=== PATIENT | female | born 1965 | race African-American/Black ===

== ENCOUNTER 2016-10-17 09:30 | Inpatient (IN) | payer MEDICAID ==
[~2016-10-17] VITALS: Ht 165.1 cm; Wt 99.8 kg
[~2016-10-17 09:30] MED LIST: AMLODIPINE BESY10 MG ORAL; ASPIR 8181 MG ORAL; HYDROCHLOROTHIA25 MG ORAL; METOPROLOL SUCC25 MG ORAL; METOPROLOL SUCC50 MG ORAL; NORVASC10 MG ORAL; SIMVASTATIN10 MG ORAL
--- NOTE | 2016-10-17 09:40 | Emergency Room Report ---
History of Present Illness General Chief Complaint: Chest Pain Source: Patient Present Illness HPI Patient is a 51-year-old female who presented after increased chest pain. Patient says she had acute onset of symptoms for one day. Patient reports having prior history hypertension. The patient states that she had also had prior history of CHF. Patient states she been out of her medications for approximately 3 weeks. As she previously had been taking amlodipine. She also reports taking other medication but does not of the names. Patient stated that she had not had any prior myocardial infarctions. Allergies: Coded Allergies: PENICILLIN (Verified Allergy, Unknown, 02/17/15) Patient History Past Medical History: see triage record Reviewed Nursing Documentation: PMH: Agreed, PSxH: Agreed Nursing Documentation-PMH Hx Cardiac Problems: Yes - CHF Hx Hypertension: Yes Hx Cancer: No Hx Gastrointestinal Problems: No Hx Neurological Problems: No Review of Systems All Other Systems: negative except mentioned in HPI Physical Exam Vital Signs Date Time Temp Pulse Resp B/P Pulse Ox O2 Delivery O2 Flow Rate FiO2 10/17/16 09:33 98.2 102 20 205/138 100 Room Air Sp02 EP Interpretation: reviewed, normal General Appearance: normal inspection, well appearing, no apparent distress, alert, GCS 15 Head: atraumatic ENT: normal ENT inspection, hearing grossly normal, normal voice Neck: normal inspection, full range of motion, supple, no bony tend Respiratory: normal inspection, lungs clear, normal breath sounds, no respiratory distress, no retraction, no wheezing Cardiovascular #1: regular rate, rhythm, no edema Gastrointestinal: normal inspection, normal bowel sounds, non tender, soft, no guarding, no hernia Genitourinary: no CVA tenderness Musculoskeletal: normal inspection, back normal, normal range of motion Neurologic: normal inspection, alert, oriented x3, responsive, geochemical manager III-XII nml as tested, speech normal Psychiatric: normal inspection, judgement/insight normal, mood/affect normal Skin: normal inspection, normal color, no rash Medical Decision Making Diagnostic Impression: Primary Impression: Acute congestive heart failure Additional Impression: Accelerated hypertension ER Course Patient presented for chest pain. Differential diagnosis included but was not limited to acute coronary syndrome, pulmonary embolism, pneumonia, aortic dissection, shingles, pneumothorax, aortic dissection, esophageal rupture, pericarditis. Because of complexity of patient's case laboratory testing and imaging studies were ordered.Laboratory testing was notable for elevated BNP.Initial troponin was negative. Patient was given IV medications for blood pressure as well as nitroglycerin. The patient was noted to have initially markedly hypertensive blood pressure. Chest Xray interpreted by me 1 view showed no evident infiltrate, normal mediastinum, and normal cardiac size. Dr. Ace Logan was contacted for inpatient management. The patient noted have continued elevated blood pressure. The patient likely need further inpatient medication management as well as diuresis. Labs Test 10/17/16 09:35 10/17/16 10:15 10/18/16 04:35 White Blood Count 6.9 K/UL (4.8-10.8) Red Blood Count 5.42 M/UL (4.20-5.40) Hemoglobin 16.6 G/DL (12.0-16.0) Hematocrit 51.9 % (37.0-47.0) Mean Corpuscular Volume 96 FL (80-99) Mean Corpuscular Hemoglobin 30.6 PG (27.0-31.0) Mean Corpuscular Hemoglobin Concent 32.0 G/DL (32.0-36.0) Red Cell Distribution Width 13.9 % (11.6-14.8) Platelet Count 278 K/UL (150-450) Mean Platelet Volume 6.4 FL (6.5-10.1) Neutrophils (%) (Auto) 46.7 % (45.0-75.0) Lymphocytes (%) (Auto) 42.0 % (20.0-45.0) Monocytes (%) (Auto) 8.9 % (1.0-10.0) Eosinophils (%) (Auto) 1.3 % (0.0-3.0) Basophils (%) (Auto) 1.1 % (0.0-2.0) Prothrombin Time 9.9 SEC (9.30-11.50) Prothromb Time International Ratio 0.9 (0.9-1.1) Activated Partial Thromboplast Time 27 SEC (23-33) Sodium Level 139 mEQ/L (135-145) Potassium Level 3.7 mEQ/L (3.4-4.9) Chloride Level 102 mEQ/L (98-107) Carbon Dioxide Level 26 mEQ/L (20-30) Anion Gap 11 (5-15) Blood Urea Nitrogen 11 mg/dL (7-23) Creatinine 1.2 mg/dL (0.5-0.9) Estimat Glomerular Filtration Rate 57.3 mL/min (>60) Glucose Level 105 mg/dL (74-106) Calcium Level 9.3 mg/dL (8.6-10.2) Total Bilirubin 0.6 mg/dL (0.0-1.2) Aspartate Amino Transf (AST/SGOT) 16 U/L (5-40) Alanine Aminotransferase (ALT/SGPT) 14 U/L (3-33) Alkaline Phosphatase 57 U/L (35-104) Total Creatine Kinase 159 U/L (26-140) Creatine Kinase MB 2.2 ng/mL (< 3.8) Creatine Kinase MB Relative Index 1.3 Pro-B-Type Natriuretic Peptide 364 pg/mL (0-125) Total Protein 7.9 g/dL (6.6-8.7) Albumin 4.4 g/dL (3.5-5.2) Globulin 3.5 g/dL Albumin/Globulin Ratio 1.2 (1.0-2.7) Urine Color Pale yellow Urine Appearance Clear Urine pH 6 (4.5-8.0) Urine Specific [place] 1.010 (1.005-1.035) Urine Protein 3+ (NEGATIVE) Urine Glucose (UA) Negative (NEGATIVE) Urine Ketones Negative (NEGATIVE) Urine Occult Blood Negative (NEGATIVE) Urine Nitrite Negative (NEGATIVE) Urine Bilirubin Negative (NEGATIVE) Urine Urobilinogen Normal MG/DL (0.0-1.0) Urine Leukocyte Esterase Negative (NEGATIVE) Urine RBC 0-2 /HPF (0 - 2) Urine WBC 0-2 /HPF (0 - 2) Urine Squamous Epithelial Cells Moderate /LPF (NONE/OCC) Urine Bacteria Few /HPF (NONE) Urine Opiates Screen Negative (NEGATIVE) Urine Barbiturates Screen Negative (NEGATIVE) Phencyclidine (PCP) Screen Negative (NEGATIVE) Urine Amphetamines Screen Negative (NEGATIVE) Urine Benzodiazepines Screen Negative (NEGATIVE) Urine Cocaine Screen Negative (NEGATIVE) Urine Marijuana (THC) Screen Negative (NEGATIVE) Troponin I < 0.30 ng/mL (<=0.30) EKG Diagnostic Results Rate: normal Rhythm: NSR ST Segments: no acute changes Rhythm Strip Diag. Results EP Interpretation: yes Rhythm: NSR, no PVC's, no ectopy Last Vital Signs Date Time Temp Pulse Resp B/P Pulse Ox O2 Delivery O2 Flow Rate FiO2 10/17/16 09:33 98.2 102 20 205/138 100 Room Air Status: improved Disposition: HOME, SELF-CARE Condition: Stable Jeffry Maria Oct 17, 2016 09:40
[2016-10-17] MEDS ORDERED: Nitroglycerin Subl 0.4mg tab (Bottle Of 25) SL PRN (09:45)
[2016-10-17] MEDS ORDERED: Metoprolol 5mg/5ml Inj IVP ONE (09:45)
[2016-10-17 09:55] LABS: BASOPHILS % (AUTO) 1.1 % (0.0-2.0); EOSINOPHILS % (AUTO) 1.3 % (0.0-3.0); MEAN CORPUSCULAR HEMOGLOBIN 30.6 PG (27.0-31.0); MEAN CORPUSCULAR VOLUME 96 FL (80-99); MEAN PLATELET VOLUME 6.4 FL (6.5-10.1); MONOCYTES % (AUTO) 8.9 % (1.0-10.0); NEUTROPHILS % (AUTO) 46.7 % (45.0-75.0); PLATELET COUNT 278 K/UL (150-450); RED BLOOD COUNT 5.42 M/UL (4.20-5.40); RED CELL DISTRIBUTION WIDTH 13.9 % (11.6-14.8); WHITE BLOOD COUNT 6.9 K/UL (4.8-10.8)
[2016-10-17 10:00] VITALS: BP 168/106
[2016-10-17 10:02] LABS: INR 0.9 (0.9-1.1); PROTHROMBIN TIME 9.9 SEC (9.30-11.50)
[2016-10-17 10:07] LABS: ALBUMIN/GLOBULIN RATIO 1.2 (1.0-2.7); CALCIUM 9.3 mg/dL (8.6-10.2); CREATININE 1.2 mg/dL (0.5-0.9); GLOMERULAR FILTRATION RATE 57.3 mL/min (>60); POTASSIUM 3.7 mEQ/L (3.4-4.9); TOTAL PROTEIN 7.9 g/dL (6.6-8.7); TROPONIN I < 0.30 ng/mL (<=0.30)
[2016-10-17 10:18] LABS: CKMB 2.2 ng/mL (< 3.8)
[2016-10-17 10:31] LABS: APPEARANCE,URINE CLEAR; KETONES,URINE NEGATIVE (NEGATIVE); LEUKOCYTE ESTERASE ,URINE NEGATIVE (NEGATIVE); NITRITE,URINE NEGATIVE (NEGATIVE); PH,URINE 6 (4.5-8.0); PROTEIN,URINE 3+ (NEGATIVE); UROBILINOGEN,URINE NORMAL MG/DL (0.0-1.0)
[2016-10-17 10:40] LABS: BACTERIA,URINE FEW /HPF; RBC,URINE 0-2 /HPF (0 - 2); SQUAMOUS EPITHELIAL CELL,UR MODERATE /LPF (NONE/OCC); WBC,URINE 0-2 /HPF (0 - 2)
[2016-10-17 11:16] VITALS: BP 160/80
--- NOTE | 2016-10-17 12:41 | History & Physical ---
History and Physical History & Physicial Present Illness HPI 51-year-old female who presented with hypertension out of control. Patient says she had acute onset of symptoms for one day. Patient reports having hypertension. Patient states she been out of her medications for approximately 3 weeks. Patient denies CAD disease Allergies: PENICILLIN (Verified Allergy, Unknown, 02/17/15) Past Medical History: CHF, HTN Reviewed of systems: otherwise negative family history; [place] MED/Allergy: reviewed Physical Exam WDWN NAD clear breath sounds bilaterally without rhonchi or wheeze [id number] without MRG NABS nontender no HSM no CCE nonfocal Laboratory Tests Test 10/17/16 09:35 10/17/16 10:15 White Blood Count 6.9 K/UL (4.8-10.8) Red Blood Count 5.42 M/UL (4.20-5.40) H Hemoglobin 16.6 G/DL (12.0-16.0) H Hematocrit 51.9 % (37.0-47.0) H Mean Corpuscular Volume 96 FL (80-99) Mean Corpuscular Hemoglobin 30.6 PG (27.0-31.0) Mean Corpuscular Hemoglobin Concent 32.0 G/DL (32.0-36.0) Red Cell Distribution Width 13.9 % (11.6-14.8) Platelet Count 278 K/UL (150-450) Mean Platelet Volume 6.4 FL (6.5-10.1) L Neutrophils (%) (Auto) 46.7 % (45.0-75.0) Lymphocytes (%) (Auto) 42.0 % (20.0-45.0) Monocytes (%) (Auto) 8.9 % (1.0-10.0) Eosinophils (%) (Auto) 1.3 % (0.0-3.0) Basophils (%) (Auto) 1.1 % (0.0-2.0) Prothrombin Time 9.9 SEC (9.30-11.50) Prothromb Time International Ratio 0.9 (0.9-1.1) Activated Partial Thromboplast Time 27 SEC (23-33) Sodium Level 139 mEQ/L (135-145) Potassium Level 3.7 mEQ/L (3.4-4.9) Chloride Level 102 mEQ/L (98-107) Carbon Dioxide Level 26 mEQ/L (20-30) Anion Gap 11 (5-15) Blood Urea Nitrogen 11 mg/dL (7-23) Creatinine 1.2 mg/dL (0.5-0.9) H Estimat Glomerular Filtration Rate 57.3 mL/min (>60) Glucose Level 105 mg/dL (74-106) Calcium Level 9.3 mg/dL (8.6-10.2) Total Bilirubin 0.6 mg/dL (0.0-1.2) Aspartate Amino Transf (AST/SGOT) 16 U/L (5-40) Alanine Aminotransferase (ALT/SGPT) 14 U/L (3-33) Alkaline Phosphatase 57 U/L (35-104) Total Creatine Kinase 159 U/L (26-140) H Creatine Kinase MB 2.2 ng/mL (< 3.8) Creatine Kinase MB Relative Index 1.3 Troponin I < 0.30 ng/mL (<=0.30) Pro-B-Type Natriuretic Peptide 364 pg/mL (0-125) H Total Protein 7.9 g/dL (6.6-8.7) Albumin 4.4 g/dL (3.5-5.2) Globulin 3.5 g/dL Albumin/Globulin Ratio 1.2 (1.0-2.7) Urine Color Pale yellow Urine Appearance Clear Urine pH 6 (4.5-8.0) Urine Specific [place] 1.010 (1.005-1.035) Urine Protein 3+ (NEGATIVE) H Urine Glucose (UA) Negative (NEGATIVE) Urine Ketones Negative (NEGATIVE) Urine Occult Blood Negative (NEGATIVE) Urine Nitrite Negative (NEGATIVE) Urine Bilirubin Negative (NEGATIVE) Urine Urobilinogen Normal MG/DL (0.0-1.0) Urine Leukocyte Esterase Negative (NEGATIVE) Urine RBC 0-2 /HPF (0 - 2) Urine WBC 0-2 /HPF (0 - 2) Urine Squamous Epithelial Cells Moderate /LPF (NONE/OCC) H Urine Bacteria Few /HPF (NONE) Urine Opiates Screen Negative (NEGATIVE) Urine Barbiturates Screen Negative (NEGATIVE) Phencyclidine (PCP) Screen Negative (NEGATIVE) Urine Amphetamines Screen Negative (NEGATIVE) Urine Benzodiazepines Screen Negative (NEGATIVE) Urine Cocaine Screen Negative (NEGATIVE) Urine Marijuana (THC) Screen Negative (NEGATIVE) IMPRESSION hypertension out of control noncompliance mild elevation in HH PLAN resume meds cardiac diet ecg, echo follow up troponin dc if stable in am JOSE WEBER Oct 17, 2016 12:41
[2016-10-17] MEDS: Metoprolol 25mg tab ORAL SCH ×2 (13:12→20:31)
[2016-10-17 13:14] VITALS: BP 177/115
[2016-10-17 15:52] VITALS: BP 156/101
[2016-10-17 20:00] VITALS: BP 153/90
[2016-10-17] MEDS: Heparin 5000 units/ml inj SUBQ SCH (20:33)
[2016-10-18] VITALS: BP 149/87
[2016-10-18 04:00] VITALS: BP 145/80
[2016-10-18 05:44] LABS: TROPONIN I < 0.30 ng/mL (<=0.30)
[2016-10-18 08:00] VITALS: BP 170/114
[2016-10-18] MEDS: Aspirin Baby 81mg ORAL SCH (08:27)
[2016-10-18] MEDS: Metoprolol 25mg tab ORAL SCH ×2 (08:27→18:10)
[2016-10-18] MEDS: Heparin 5000 units/ml inj SUBQ SCH ×2 (08:28→20:29)
--- NOTE | 2016-10-18 09:42 | General Progress Note ---
Assessment/Plan Assessment/Plan IMPRESSION hypertension out of control noncompliance mild elevation in HH PLAN continue meds cardiac diet ecg, echo to follow follow up troponin dc home with home health if stable Subjective Allergies: Coded Allergies: PENICILLIN (Verified Allergy, Unknown, 02/17/15) Subjective care noted tele reviewed stable overnight Objective Last 24 Hour Vital Signs Date Time Temp Pulse Resp B/P Pulse Ox O2 Delivery O2 Flow Rate FiO2 10/18/16 08:27 67 170/114 10/18/16 08:27 67 170/114 10/18/16 08:00 97.5 67 20 170/114 96 Room Air 10/18/16 04:00 98.2 72 19 145/80 100 Room Air 10/18/16 04:00 67 10/18/16 00:00 58 10/18/16 00:00 98.2 70 20 149/87 100 Room Air 10/17/16 23:07 98.1 10/17/16 20:31 68 153/90 10/17/16 20:00 98.1 68 19 153/90 95 Room Air 10/17/16 20:00 67 10/17/16 18:00 86 10/17/16 16:53 59 185/105 10/17/16 15:52 98.0 18 156/101 99 10/17/16 13:16 98.0 62 14 177/115 96 Nasal Cannula 2.0 10/17/16 13:14 98.0 62 14 177/115 96 Nasal Cannula 2.0 10/17/16 13:12 62 177/115 10/17/16 11:16 72 16 160/80 98 Room Air 10/17/16 10:00 98.1 93 29 168/106 95 Room Air 10/17/16 09:44 84 192/136 10/17/16 09:43 192/136 Intake and Output 10/17/16 10/18/16 19:00 07:00 Intake Total 300 ml 400 ml Balance 300 ml 400 ml Intake Oral 300 ml IV Total 400 ml Laboratory Tests 10/17/16 10:15: Urine Color Pale yellow, Urine Appearance Clear, Urine pH 6, Urine Specific [place] 1.010, Urine Protein 3+H, Urine Glucose (UA) Negative, Urine Ketones Negative, Urine Occult Blood Negative, Urine Nitrite Negative, Urine Bilirubin Negative, Urine Urobilinogen Normal, Urine Leukocyte Esterase Negative, Urine RBC 0-2, Urine WBC 0-2, Urine Squamous Epithelial Cells ModerateH, Urine Bacteria Few, Urine Opiates Screen Negative, Urine Barbiturates Screen Negative , Phencyclidine (PCP) Screen Negative, Urine Amphetamines Screen Negative, Urine Benzodiazepines Screen Negative, Urine Cocaine Screen Negative, Urine Marijuana (THC) Screen Negative 10/18/16 04:35: Troponin I < 0.30 Height (Feet): 5 Height (Inches): 5.00 Weight (Pounds): 220 Objective WDWN NAD clear breath sounds bilaterally without rhonchi or wheeze [id number] without MR; noted S4 NABS nontender no HSM no CCE nonfocal JOSE WEBER Oct 18, 2016 09:42
[2016-10-18 12:00] VITALS: BP 144/99
--- NOTE | 2016-10-18 14:49 | Physician Query ---
PLEASE COMPLETE DOCUMENT BEFORE SIGNING Dear Dr. WEBER Date: OCTOBER 18, 2016 [facility] Name: VITOR MINA/ROSALINA [facility] Phone #[phone] Exercise your independent professional judgment when responding to the query. Question asked do not imply a particular answer is desired/expected Clinical Documentation States: "HYPERTENSION OUT OF CONTROL" documented in Clinical Findings Show: Systolic BP = 205, 192, 192, 168 Diastolic BP = 138, 136, 136, 106 Treatment: Antihypertensives: NITROGLYCERINE SL, METOPROLOL 50 MG BID, AMLODIPINE 10 MG OD. ASA 81 mg OD, HEPARIN 5,000 SQ, NaCl IVF Please Clarify the specific type of hypertension: [x] HYPERTENSIVE URGENCY [] HYPERTENSIVE EMERGENCY [] BENIGN/ESSENTIAL HYPERTENSION [] Other: Please clarify if associated with: []Heart Disease []Kidney Disease Condition Present on Admission: [x] Yes [] No []Clinically Undeterminable Please also document in your Progress Notes and/or Discharge Summary and indicate if the condition was present on admission. JOSE WEBER M.D. DATE & TIME MTDD
[2016-10-18 16:00] VITALS: BP 146/94
[2016-10-18 20:00] VITALS: BP 162/94
[2016-10-19] VITALS: BP 170/101
[2016-10-19 04:00] VITALS: BP 171/112
[2016-10-19 07:56] LABS: TROPONIN I < 0.30 ng/mL (<=0.30)
[2016-10-19 08:00] VITALS: BP 147/106
[2016-10-19] MEDS: Aspirin Baby 81mg ORAL SCH (09:19)
[2016-10-19] MEDS: Metoprolol 25mg tab ORAL SCH (09:19)
[2016-10-19] MEDS: Heparin 5000 units/ml inj SUBQ SCH (09:21)
[2016-10-19 10:53] VITALS: BP 149/95
--- NOTE | 2016-10-19 11:04 | General Progress Note ---
Assessment/Plan Assessment/Plan IMPRESSION hypertension out of control noncompliance mild elevation in HH hypertensive urgency PLAN continue meds rx given follow up with PMD dc home today Subjective Allergies: Coded Allergies: PENICILLIN (Verified Allergy, Unknown, 02/17/15) Subjective care noted tele reviewed stable overnight BP slightly elevated Objective Last 24 Hour Vital Signs Date Time Temp Pulse Resp B/P Pulse Ox O2 Delivery O2 Flow Rate FiO2 10/19/16 10:53 97.0 52 18 149/95 96 10/19/16 09:19 57 157/92 10/19/16 09:19 57 157/92 10/19/16 08:00 96.9 57 17 147/106 95 Room Air 10/19/16 08:00 60 10/19/16 04:00 97.6 61 18 171/112 96 Room Air 10/19/16 04:00 54 10/19/16 00:00 45 10/19/16 00:00 97.8 58 18 170/101 95 Room Air 10/18/16 20:00 97.7 57 20 162/94 95 Room Air 10/18/16 20:00 59 10/18/16 19:03 59 10/18/16 18:10 56 146/94 10/18/16 16:00 97.2 56 21 146/94 97 Room Air 10/18/16 12:08 55 10/18/16 12:00 97.0 60 21 144/99 98 Room Air Intake and Output 10/18/16 10/19/16 19:00 07:00 Intake Total 840 ml 1000 ml Balance 840 ml 1000 ml Intake Oral 240 ml IV Total 600 ml 1000 ml # Voids 1 Laboratory Tests 10/19/16 05:25: Troponin I < 0.30 Height (Feet): 5 Height (Inches): 5.00 Weight (Pounds): 220 Objective WDWN NAD clear breath sounds bilaterally without rhonchi or wheeze [id number] without MR; noted S4 NABS nontender no HSM no CCE nonfocal JOSE WEBER Oct 19, 2016 11:04
[2016-10-19 12:00] VITALS: BP 149/95
--- NOTE | 2016-10-20 08:38 | Diagnostic Imaging Report ---
Indication: SOB Technique: One view of the chest Comparison: 02/10/2014 Findings: The heart is enlarged. Lungs and pleural spaces are. Aorta is tortuous. There is no significant interim change Impression: No acute process Mild cardio mainly
--- NOTE | 2016-10-20 14:15 | Discharge Summary ---
Discharge Summary Hospital Course Date of Admission Oct 17, 2016 at 10:01 Date of Discharge Oct 19, 2016 at 13:50 Admitting Diagnosis * acs, uncontrolled hypertension, chf HPI Matt Martin is a 51 year old female who was admitted on Oct 17, 2016 at 10:01 for Acute Coronary Syndrome,Uncontrolled Hypertension, Hospital Course dc summary #[id number] Discharge Condition Upon Discharge: stable Discharge Disposition Patient was discharged to Home () Discharge Diagnoses: Discharge Instructions Discharge Instructions Special Instructions I have been assigned to complete a D/C Summary on this account. I was not involved in the patient management Laya Rubalcava NP ([facility]) Oct 20, 2016 14:15
--- NOTE | 2016-10-21 00:15 | Discharge Summary 2 SIG ---
DATE OF ADMISSION: 10/17/2016 DATE OF DISCHARGE: 10/19/2016 REASON FOR ADMISSION: 51-year-old female with a history of hypertension, who was out of her medications for about three weeks, presented to emergency room complaining of chest pain. Blood pressure found to be elevated 205/103. Troponin was negative. The patient was afebrile and slightly tachycardic- 102. EKG showed sinus rhythm. No acute ischemic changes. Pulse oximetry was stable on room air. Urine tox screen was negative. Pro BNP - 364.The patient was admitted for further management. ADMITTING DIAGNOSES: 1. Hypertensive urgency. 2. Noncompliance. 3. Mild elevation in hemoglobin and hematocrit. HOSPITAL STAY: The patient was admitted to telemetry floor. Telemetry showed sinus rhythm, no acute ischemic changes. Serial troponin x3 were negative. Therefore, the patient was ruled out for acute myocardial infarction. The patient declined any history of coronary artery disease. The patient was restarted on calcium channel kevin and beta kevin for blood pressure management. The patient was given aspirin. Blood pressure was stable with current regimen. Chest x-ray revealed no acute cardiopulmonary pathology. Pain management was addressed, and pain was controlled. The patient was stable for discharge home and follow up with her primary medical doctor. DISCHARGE DIAGNOSES: 1. Hypertensive urgency. 2. Noncompliance. 3. Mild elevation in hemoglobin and hematocrit. DISCHARGE MEDICATIONS: See medication reconciliation list. DISCHARGE INSTRUCTIONS: The patient was discharged home and follow up with primary medical doctor. Ace Logan M.D. I have been assigned to dictate discharge summary on this account and I was not involved in the patient's management. Laya Rubalcava (Vanchtein) N.PKarolina DR: BIB JOB#: [id number] CC: ANABELL
--- NOTE | 2016-10-22 08:14 | Cardiology Report ---
APPROVED REPORT EKG Measurement Heart [id number] Normal sinus rhythm Possible Left atrial enlargement Left anterior fascicular block Left ventricular hypertrophy Abnormal ECG
--- NOTE | 2016-10-22 17:16 | Cardiology Report ---
APPROVED REPORT EKG Measurement Heart [id number] Normal sinus rhythm Left anterior fascicular block Minimal voltage criteria for LVH, may be normal variant T wave abnormality, consider inferior ischemia Prolonged QT Abnormal ECG
== END 2016-10-19 13:50 | disposition home or self-care (01) | DRG 199 ==
LOC: EMR 09:47 → 2E 10:01 → EDBEDREQ 10:40
DX: I16.0 Hypertensive urgency (principal); I50.9 Heart failure, unspecified; Z91.14 Patient's other noncompliance with medication regimen; Z88.0 Allergy status to penicillin
CPT/HCPCS: 36415; 71010; 80053; 80300; 81003; 82550; 82553; 83880; 84484; 85025; 85610; 85730; 93005